=== PATIENT | female | born 1980 | race Caucasian/White ===

== ENCOUNTER → 2017-11-28 | Outpatient (CLI) | payer OTHER ==
[2017-11-28 11:07] LABS: ALT 35 U/L (9-52); AST 23 U/L (14-36); Albumin 4.6 g/dL (3.5-5.0); Alkaline Phosphatase 85 U/L (38-126); Anion Gap 12 mmol/L; Blood Urea Nitrogen 12 mg/dL (7-17); Calcium 9.5 mg/dL (8.4-10.2); Carbon Dioxide 26 mmol/L (22-30); Chloride 102 mmol/L (98-107); Cholesterol 204 mg/dL (<200); Glucose 91 mg/dL (74-99); HDL Cholesterol 39 mg/dL (40-60); LDL Cholesterol,Calculated 111 mg/dL (0-99); Potassium 4.3 mmol/L (3.5-5.1); Sodium 140 mmol/L (137-145); Total Protein 7.5 g/dL (6.3-8.2); Triglycerides 272 mg/dL (<150)
[2017-11-28 11:16] LABS: HCT 43.8 % (34.0-46.0); HGB 14.6 gm/dL (11.4-16.0); MCH 28.7 pg (25.0-35.0); MCHC 33.3 g/dL (31.0-37.0); MCV 86.3 fL (80.0-100.0); Mean Platelet Volume 6.8; Platelet Count 350 k/uL (150-450); RBC 5.08 m/uL (3.80-5.40); RDW 13.5 % (11.5-15.5); WBC 10.5 k/uL (3.8-10.6)
[2017-11-28 11:19] LABS: T4, Free (Free Thyroxine) 0.83 ng/dL (0.78-2.19)
== END | disposition home or self-care (01) ==
LOC: LABWHC1 10:26
PROVIDERS: ATTEND Internal Medicine
DX: Z00.00 Encounter for general adult medical examination without abnormal findings (principal); E78.2 Mixed hyperlipidemia; I11.9 Hypertensive heart disease without heart failure
CPT/HCPCS: 36415; 80053; 80061; 84439; 84443; 85027

== ENCOUNTER 2017-11-29 10:40 | Outpatient (CLI) | payer OTHER ==
--- NOTE | 2017-12-05 13:04 | WWHP ---
[facility] - HISTORY AND PHYSICAL DATE OF SERVICE: 12/05/2017 CHIEF COMPLAINT: The patient is here for her routine gynecologic exam. HPI: This is a 37-year-old, G3, P1-0-2-1 with an LMP of 11/28/2017. The patient is without gynecologic complaints and states her menses are regular every month. She states her boyfriend is sterile and is status post bilateral testes removal for testicular cancer and is declining anything for control because of this. PAST MEDICAL HISTORY: Chronic hypertension, anxiety, and chronic back problems. MEDICATIONS: 1. Dyazide generic 37.5/25 mg daily. 2. Xanax generic 0.25 mg b.i.d. p.r.n. 3. Clonidine 1 b.i.d. 4. Ultram generic 50 mg b.i.d. p.r.n. ALLERGIES: Allergies to IBUPROFEN, which caused hives. PAST SURGICAL HISTORY: in the past, laminectomy 2014, cleft palate surgery as a child. 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 SOCIAL HISTORY: She smokes 1 pack of cigarettes per day and has about 4 alcohol-containing drinks per week. She denies drug use. She is currently unemployed. She has been with her boyfriend since 2012 and now lives with him. FAMILY HISTORY: Unchanged from the 05/25/2016 H&P. REVIEW OF SYSTEMS: She has gained about 3 pounds over the last year. She denies respiratory, cardiac or GI problems. PHYSICAL EXAM: Blood pressure 151/96, height 5 feet 5 inches, weight 212 pounds, BMI 35. temperature 98.0, pulse 81. This is a well-developed, well-nourished, white female, who is alert and oriented x3, in no acute distress. HEENT is within normal limits. NECK: Supple without mass or thyromegaly. CHEST AND LUNGS: Clear to auscultation. HEART: Regular rate and rhythm. Breasts are without mass or discharge. Axillary exam is negative for adenopathy. BACK: Negative for CVA tenderness. ABDOMEN: Soft, nontender, without palpable masses. PELVIC EXAM: Normal external genitalia. Cervix and vagina appear normal. The uterus is mid position, nongravid size and nontender. There are no palpable adnexal masses or tenderness. Rectal exam is negative for mass or tenderness and is negative for occult blood. EXTREMITIES: Nontender. IMPRESSION: 1. A 37-year-old gynecologically healthy female with normal gynecologic exam. 2. Elevated blood pressure with history of chronic hypertension. 3. Family history of breast cancer in her paternal grandmother. PLAN: 1. Pap smear was deferred since she had a normal one less than 2 years ago. 2. Self breast examination was discussed. 3. She had a normal mammogram at age 36. We will plan on repeating this next year. 4. We have discussed her elevated blood pressure. I have recommended that she check her blood pressure at home on a regular basis and follow up with Dr. Goyal regarding blood pressure elevations. 5. Osteoporosis prevention was discussed. 6. She will return in 1 year. MMODL / IJN: [id number] /
== END 2017-12-05 | disposition home or self-care (01) ==
LOC: CANPRECLI → WWCWWP 12-05 11:34
PROVIDERS: ATTEND Obstetrics & Gynecology
DX: Z53.9 Procedure and treatment not carried out, unspecified reason (principal)

== ENCOUNTER → 2017-12-13 | Outpatient (CLI) | payer OTHER ==
--- NOTE | 2017-12-13 13:47 | MR ---
EXAMINATION TYPE: MR lumbar spine wo con DATE OF EXAM: 12/13/2017 COMPARISON: Prior MRI lumbar spine October 16, 2014. Prior lumbar spine x-ray June 02, 2016 HISTORY: Low back pain for 3+ years per patient causing pain into bilateral lower extremities, histo ry of prior back surgery October 2015 TECHNIQUE: Multiplanar, multisequence imaging of the lumbar spine is performed without IV contrast. FINDINGS: Sagittal images of the lumbar spine show vertebral body heights and alignment to remain sat isfactory. There is persistent disc desiccation with increased advanced disc space narrowing and vacu um disc phenomenon L5-S1 level. Posterior disc herniation remains present at this level though less p rominent. Adjacent posterior scar tissue is felt present now. There is no right-sided laminectomy def ect. The conus medullaris remains normal in position and signal ending mid L1 level. The bone marrow signal intensity shows increased diminished T1 and increased T2 signal consistent with Modic type I degenerative change at L5-S1 level. Axial images show the T12-L1, L1-L2, L2-L3, L3-L4, and L4-L5 levels all to remain within normal limit s. Axial images at L5-S1 level shows central disc protrusion axial image 3 that remains present last pro minent than prior study. Along posterior right aspect of this there is curvilinear low T1 and T2 hypo intense area effacing anterolateral thecal sac axial image 3 could reflect retained disc fragment or more likely scar tissue. Right-sided laminectomy defect is now seen at this level. Disc herniation ca uses mild effacement right L5 neural foramina anterior inferior aspect. Left-sided neural foramen is patent. IMPRESSION: Interval surgery L5-S1 level with new right-sided laminectomy defect. Persistent posterio r disc herniation is less prominent. New curvilinear area adjacent to disc herniation effaces right a nterolateral thecal sac on current study suspected focal scar tissue, remnant disc fragment cannot be excluded. Correlate with surgical history.
== END | disposition home or self-care (01) ==
LOC: RADMRIMAIN 12:41
PROVIDERS: ATTEND Internal Medicine
DX: M51.26 Other intervertebral disc displacement, lumbar region (principal); Z98.890 Other specified postprocedural states
CPT/HCPCS: 72148

== ENCOUNTER → 2018-02-03 | Outpatient (CLI) | payer OTHER ==
[2018-02-03 12:07] LABS: Cholesterol 224 mg/dL (<200); HDL Cholesterol 50 mg/dL (40-60); LDL Cholesterol,Calculated 127 mg/dL (0-99); Triglycerides 235 mg/dL (<150)
== END | disposition home or self-care (01) ==
LOC: LABWHC1 11:40
PROVIDERS: ATTEND Internal Medicine
DX: E78.2 Mixed hyperlipidemia (principal)
CPT/HCPCS: 36415; 80061

== ENCOUNTER → 2018-02-19 | Outpatient (CLI) | payer OTHER ==
--- NOTE | 2018-02-19 13:29 | XR ---
EXAMINATION TYPE: XR chest 2V DATE OF EXAM: 02/19/2018 COMPARISON: Prior chest x-ray 05/11/2015 HISTORY: Chest pain, hypertension TECHNIQUE: Frontal and lateral views of the chest are obtained. FINDINGS: There is no focal air space opacity, pleural effusion, or pneumothorax seen. The cardiac silhouette size is within normal limits. Mild spinal curvature may be positional. Prominent lung volu me could be indicative of underlying COPD. The osseous structures are intact. IMPRESSION: No acute cardiopulmonary process.
== END ==
LOC: RADXRMAIN 11:42
PROVIDERS: ATTEND Internal Medicine
DX: R07.9 Chest pain, unspecified (principal)
CPT/HCPCS: 71046

== ENCOUNTER → 2018-06-06 | Outpatient (CLI) | payer OTHER ==
[2018-06-06 13:03] LABS: Basophils % (A) 0 %; Eosinophils # (A) 0.2 k/uL (0-0.7); Eosinophils % (A) 2 %; HCT 41.9 % (34.0-46.0); HGB 13.7 gm/dL (11.4-16.0); Lymphocytes # (A) 2.8 k/uL (1.0-4.8); Lymphocytes % (A) 32 %; MCH 27.8 pg (25.0-35.0); MCHC 32.6 g/dL (31.0-37.0); MCV 85.4 fL (80.0-100.0); Mean Platelet Volume 6.6; Monocytes # (A) 0.4 k/uL (0-1.0); Monocytes % (A) 4 %; Neutrophils # (A) 5.1 k/uL (1.3-7.7); Neutrophils % (A) 60 %; Platelet Count 342 k/uL (150-450); RBC 4.91 m/uL (3.80-5.40); RDW 13.5 % (11.5-15.5); WBC 8.5 k/uL (3.8-10.6)
--- NOTE | 2018-06-06 13:04 | XR ---
EXAMINATION TYPE: XR chest 2V DATE OF EXAM: 06/06/2018 COMPARISON: 02/19/2018 TECHNIQUE: PA and lateral views submitted. HISTORY: Preop FINDINGS: The lungs are clear and there is no pneumothorax, pleural effusion, or focal pneumonia. IMPRESSION: 1. No acute process.
[2018-06-06 13:08] LABS: Partial Thromboplastin Time 23.8 sec (22.0-30.0); Prothrombin Time 9.7 sec (9.0-12.0)
[2018-06-06 13:15] LABS: Appearance,Urine Clear (Clear); Bilirubin,Urine Negative (Negative); Blood,Urine Small (Negative); Color,Urine Yellow; Glucose,Urine (UA) Negative (Negative); Hyaline Casts,Urine 4 /lpf (0-2); Ketones,Urine Negative (Negative); Leukocyte Esterase,Urine Negative (Negative); Mucus,Urine Rare /hpf; Nitrite,Urine Negative (Negative); PH, Urine 6.5 (5.0-8.0); Protein,Urine Negative (Negative); RBC,Urine 1 /hpf (0-5); Specific Gravity,Urine 1.014 (1.001-1.035); Squamous Epithelial Cell,Urine <1 /hpf (0-4); Urobilinogen,Urine <2.0 mg/dL (<2.0)
[2018-06-06 13:19] LABS: ALT 39 U/L (9-52); AST 25 U/L (14-36); Albumin 4.5 g/dL (3.5-5.0); Alkaline Phosphatase 75 U/L (38-126); Anion Gap 10 mmol/L; Blood Urea Nitrogen 13 mg/dL (7-17); Calcium 9.7 mg/dL (8.4-10.2); Carbon Dioxide 25 mmol/L (22-30); Chloride 103 mmol/L (98-107); Glucose 94 mg/dL (74-99); Potassium 4.4 mmol/L (3.5-5.1); Sodium 138 mmol/L (137-145); Total Bilirubin 0.4 mg/dL (0.2-1.3); Total Protein 7.3 g/dL (6.3-8.2)
== END | disposition home or self-care (01) ==
LOC: LAB 12:17
PROVIDERS: ATTEND Neurological Surgery
DX: Z01.818 Encounter for other preprocedural examination (principal); M48.061 Spinal stenosis, lumbar region without neurogenic claudication; I10 Essential (primary) hypertension; R06.02 Shortness of breath; Z01.812 Encounter for preprocedural laboratory examination
CPT/HCPCS: 36415; 71046; 80053; 81001; 85025; 85610; 85730; 93005

== ENCOUNTER → 2018-08-30 | Outpatient (CLI) | payer OTHER ==
--- NOTE | 2018-08-30 16:41 | XR ---
Lumbar spine HISTORY: Back pain, lumbar fusion 3 views of the lumbar spine correlated prior exam 05/25/2016 There is been posterior fusion at the lumbosacral junction with screws coursing across the facets, la rge screw coursing from the S1 vertebral body to the posterior aspect of the L5 vertebral body. Loss of disc height L5-S1 as noted on prior exam. There is multilevel spondylosis. Disc height also presen t L4-5. Vertebral body height and bone mineralization, alignment are maintained. IMPRESSION: Neurosurgical follow-up.
== END ==
LOC: RADXRMAIN 15:35
PROVIDERS: ATTEND Neurological Surgery
DX: M54.9 Dorsalgia, unspecified (principal); Z98.1 Arthrodesis status
CPT/HCPCS: 72100

== ENCOUNTER 2018-09-11 15:16 | Emergency (ER) | payer OTHER ==
--- NOTE | 2018-09-11 16:00 | ED ---
General Adult HPI - General Chief complaint: Chest Pain Stated complaint: Chest pain/ heart palpations Time Seen by Provider: 09/11/18 15:16 Source: patient, RN notes reviewed Mode of arrival: wheelchair Limitations: no limitations - History of Present Illness Initial comments: This is a 38-year-old female who presents emergency department with past medical history significant for anxiety. Patient comes in today stating that she started feeling her heart have palpitations and then last night there was a period of time for about 5 minutes that she had constant palpitations and she became somewhat short of breath and lightheaded. Patient states she doesn't know if the lightheadedness was from her anxiety or from the palpitations. Patient states she's also been nauseated for the last 2-1/2 days. Patient states on Monday she dry heaved multiple times but no actual emesis. Patient denies any abdominal pain patient denies any chest pain patient denies any headache patient denies numbness weakness. Patient denies any fever chills. Patient states currently she is asymptomatic. Patient states most of today she only had short lived palpitations but last night really scared her when she had the five-minute episode of constant palpitations. - Related Data Home Medications Medication Instructions Recorded Confirmed ALPRAZolam [Xanax] 0.25 mg PO BID PRN 09/11/18 09/11/18 Triamterene-Hctz 37.5-25Mg 1 cap PO DAILY 09/11/18 09/11/18 [Dyazide 37.5-25 Capsule] cloNIDine HCL [Catapres] 0.2 mg PO BID 09/11/18 09/11/18 traMADol HCL [Ultram] 50 mg PO BID PRN 09/11/18 09/11/18 Allergies Allergy/AdvReac Type Severity Reaction Status Date / Time ibuprofen [From Motrin] Allergy Rash/Hives Verified 09/11/18 15:37 Review of Systems ROS Statement: Those systems with pertinent positive or pertinent negative responses have been documented in the HPI. ROS Other: All systems not noted in ROS Statement are negative. Past Medical History Past Medical History: Hypertension History of Any Multi-Drug Resistant Organisms: None Reported Past Surgical History: Back Surgery, Section, Ear Surgery Additional Past Surgical History / Comment(s): spinal fusion, cleft plate repair Past Psychological History: Anxiety Smoking Status: Current every day smoker Past Alcohol Use History: None Reported Past Drug Use History: Marijuana General Exam - General Exam Comments Initial Comments: GENERAL: Patient is well-developed and well-nourished. Patient is nontoxic and well- hydrated and is in mild distress. ENT: Neck is soft and supple. No significant lymphadenopathy is noted. Oropharynx is clear. Moist mucous membranes. Neck has full range of motion without eliciting any pain. EYES: The sclera were anicteric and conjunctiva were pink and moist. Extraocular movements were intact and pupils were equal round and reactive to light. Eyelids were unremarkable. PULMONARY: Unlabored respirations. Good breath sounds bilaterally. No audible rales rhonchi or wheezing was noted. CARDIOVASCULAR: There is a regular rate and rhythm without any murmurs gallops or rubs. ABDOMEN: Soft and nontender with normal bowel sounds. No palpable organomegaly was noted. There is no palpable pulsatile mass. SKIN: Skin is clear with no lesions or rashes and otherwise unremarkable. NEUROLOGIC: Patient is alert and oriented x3. Cranial nerves II through XII are grossly intact. Motor and sensory are also intact. Normal speech, volume and content. Symmetrical smile. MUSCULOSKELETAL: Normal extremities with adequate strength and full range of motion. No lower extremity swelling or edema. No calf tenderness. LYMPHATICS: No significant lymphadenopathy is noted PSYCHIATRIC: Normal psychiatric evaluation. Normal interpersonal interactions appears functionally intact in deals appropriately with others. No signs of depression. No signs of anxiety. Limitations: no limitations Course Vital Signs 09/11/18 09/11/18 09/11/18 15:24 15:39 16:00 Temperature 98.0 F Pulse Rate 83 76 Respiratory 20 16 Rate Blood Pressure 177/90 152/101 O2 Sat by Pulse 98 96 95 Oximetry 09/11/18 16:30 Temperature Pulse Rate 79 Respiratory 16 Rate Blood Pressure 143/97 O2 Sat by Pulse 96 Oximetry Medical Decision Making - Medical Decision Making EKG shows normal sinus rhythm at 90 bpm WV interval 140 [place]ress is 86 Q-T intervals 362 QTC is 442. Patient's EKG shows no ST segment elevation or depression or T wave abnormalities are noted. No extrasystole is noted. Of the nurse's notes indicated chest pain the patient denied to me. Chest x-ray shows no acute abnormality. Patient only experienced a a couple times very quickly in the emergency department was not picked up on the monitor. - Lab Data Result diagrams: 09/11/18 16:05 09/11/18 16:05 Lab Results 09/11/18 09/11/18 09/11/18 Range/Units 16:05 16:05 16:05 WBC 11.3 H (3.8-10.6) k/uL RBC 5.28 (3.80-5.40) m/uL Hgb 15.0 (11.4-16.0) gm/dL Hct 43.6 (34.0-46.0) % MCV 82.4 (80.0-100.0) fL MCH 28.4 (25.0-35.0) pg MCHC 34.4 (31.0-37.0) g/dL RDW 13.8 (11.5-15.5) % Plt Count 399 (150-450) k/uL Neutrophils % 66 % Lymphocytes % 27 % Monocytes % 4 % Eosinophils % 1 % Basophils % 0 % Neutrophils # 7.5 (1.3-7.7) k/uL Lymphocytes # 3.1 (1.0-4.8) k/uL Monocytes # 0.5 (0-1.0) k/uL Eosinophils # 0.1 (0-0.7) k/uL Basophils # 0.0 (0-0.2) k/uL PT (9.0-12.0) sec INR (<1.2) APTT (22.0-30.0) sec Sodium 139 (137-145) mmol/L Potassium 3.9 (3.5-5.1) mmol/L Chloride 104 (98-107) mmol/L Carbon Dioxide 22 (22-30) mmol/L Anion Gap 13 mmol/L BUN 10 (7-17) mg/dL Creatinine 0.56 (0.52-1.04) mg/dL Est GFR (CKD-EPI)AfAm >90 (>60 ml/min/1.73 sqM) Est GFR (CKD-EPI)NonAf >90 (>60 ml/min/1.73 sqM) Glucose 97 (74-99) mg/dL Calcium 10.3 H (8.4-10.2) mg/dL Magnesium 2.2 (1.6-2.3) mg/dL Total Bilirubin 1.2 (0.2-1.3) mg/dL AST 29 (14-36) U/L ALT 41 (9-52) U/L Alkaline Phosphatase 92 (38-126) U/L Total Creatine Kinase 42 (30-135) U/L CK-MB (CK-2) <0.2 (0.0-2.4) ng/mL CK-MB (CK-2) Rel Index Troponin I <0.012 (0.000-0.034) ng/mL Total Protein 8.5 H (6.3-8.2) g/dL Albumin 5.0 (3.5-5.0) g/dL TSH 1.190 (0.465-4.680) mIU/L Free T4 1.12 (0.78-2.19) ng/dL Urine Opiates Screen (NotDetected) Ur Oxycodone Screen (NotDetected) Urine Methadone Screen (NotDetected) Ur Propoxyphene Screen (NotDetected) Ur Barbiturates Screen (NotDetected) U Tricyclic Antidepress (NotDetected) Ur Phencyclidine Scrn (NotDetected) Ur Amphetamines Screen (NotDetected) U Methamphetamines Scrn (NotDetected) U Benzodiazepines Scrn (NotDetected) Urine Cocaine Screen (NotDetected) U Marijuana (THC) Screen (NotDetected) 09/11/18 09/11/18 Range/Units 16:05 16:23 WBC (3.8-10.6) k/uL RBC (3.80-5.40) m/uL Hgb (11.4-16.0) gm/dL Hct (34.0-46.0) % MCV (80.0-100.0) fL MCH (25.0-35.0) pg MCHC (31.0-37.0) g/dL RDW (11.5-15.5) % Plt Count (150-450) k/uL Neutrophils % % Lymphocytes % % Monocytes % % Eosinophils % % Basophils % % Neutrophils # (1.3-7.7) k/uL Lymphocytes # (1.0-4.8) k/uL Monocytes # (0-1.0) k/uL Eosinophils # (0-0.7) k/uL Basophils # (0-0.2) k/uL PT 10.0 (9.0-12.0) sec INR 1.0 (<1.2) APTT 24.0 (22.0-30.0) sec Sodium (137-145) mmol/L Potassium (3.5-5.1) mmol/L Chloride (98-107) mmol/L Carbon Dioxide (22-30) mmol/L Anion Gap mmol/L BUN (7-17) mg/dL Creatinine (0.52-1.04) mg/dL Est GFR (CKD-EPI)AfAm (>60 ml/min/1.73 sqM) Est GFR (CKD-EPI)NonAf (>60 ml/min/1.73 sqM) Glucose (74-99) mg/dL Calcium (8.4-10.2) mg/dL Magnesium (1.6-2.3) mg/dL Total Bilirubin (0.2-1.3) mg/dL AST (14-36) U/L ALT (9-52) U/L Alkaline Phosphatase (38-126) U/L Total Creatine Kinase (30-135) U/L CK-MB (CK-2) (0.0-2.4) ng/mL CK-MB (CK-2) Rel Index Troponin I (0.000-0.034) ng/mL Total Protein (6.3-8.2) g/dL Albumin (3.5-5.0) g/dL TSH (0.465-4.680) mIU/L Free T4 (0.78-2.19) ng/dL Urine Opiates Screen Not Detected (NotDetected) Ur Oxycodone Screen Not Detected (NotDetected) Urine Methadone Screen Not Detected (NotDetected) Ur Propoxyphene Screen Not Detected (NotDetected) Ur Barbiturates Screen Not Detected (NotDetected) U Tricyclic Antidepress Not Detected (NotDetected) Ur Phencyclidine Scrn Not Detected (NotDetected) Ur Amphetamines Screen Not Detected (NotDetected) U Methamphetamines Scrn Not Detected (NotDetected) U Benzodiazepines Scrn Detected H (NotDetected) Urine Cocaine Screen Not Detected (NotDetected) U Marijuana (THC) Screen Not Detected (NotDetected) Disposition Clinical Impression: Palpitations Disposition: HOME SELF-CARE Instructions: Heart Palpitations (ED), Chest Pain (ED) Additional Instructions: Patient should follow-up with her primary medical care doctor for an event monitor. Is patient prescribed a controlled substance at d/c from ED?: No Referrals: Marvel Goyal MD [Primary Care Provider] - 1-2 days Time of Disposition: 17:29
[2018-09-11 16:31] LABS: Basophils % (A) 0 %; Eosinophils # (A) 0.1 k/uL (0-0.7); Eosinophils % (A) 1 %; HCT 43.6 % (34.0-46.0); Lymphocytes # (A) 3.1 k/uL (1.0-4.8); Lymphocytes % (A) 27 %; MCH 28.4 pg (25.0-35.0); MCHC 34.4 g/dL (31.0-37.0); MCV 82.4 fL (80.0-100.0); Mean Platelet Volume 6.6; Monocytes # (A) 0.5 k/uL (0-1.0); Monocytes % (A) 4 %; Neutrophils # (A) 7.5 k/uL (1.3-7.7); Neutrophils % (A) 66 %; Platelet Count 399 k/uL (150-450); RBC 5.28 m/uL (3.80-5.40); RDW 13.8 % (11.5-15.5); WBC 11.3 k/uL (3.8-10.6)
[2018-09-11 16:44] LABS: ALT 41 U/L (9-52); AST 29 U/L (14-36); Alkaline Phosphatase 92 U/L (38-126); Anion Gap 13 mmol/L; Blood Urea Nitrogen 10 mg/dL (7-17); Calcium 10.3 mg/dL (8.4-10.2); Carbon Dioxide 22 mmol/L (22-30); Chloride 104 mmol/L (98-107); Glucose 97 mg/dL (74-99); Magnesium 2.2 mg/dL (1.6-2.3); Potassium 3.9 mmol/L (3.5-5.1); Sodium 139 mmol/L (137-145); Total Bilirubin 1.2 mg/dL (0.2-1.3); Total Protein 8.5 g/dL (6.3-8.2)
[2018-09-11 16:50] LABS: Creatine Kinase 42 U/L (30-135)
--- NOTE | 2018-09-11 16:50 | XR ---
EXAMINATION: XR chest 2V DATE AND TIME: 09/11/2018 4:32 PM CLINICAL INDICATION: dysrhythmia TECHNIQUE: PA and lateral COMPARISON: Radiographs 06/06/2018 FINDINGS: The lungs are clear. The pleural spaces are negative. The cardiac silhouette is not enlarged. The remainder of the mediastinal silhouette is unremarkable. The skeletal structures and soft tissues are negative for acute findings. IMPRESSION: NO ACUTE PROCESS.
[2018-09-11 16:51] LABS: Amphetamine Screen,Urine Not Detected (NotDetected); Barbiturate Screen,Urine Not Detected (NotDetected); Benzodiazepines Screen,Urine Detected (NotDetected); Cocaine Screen,Urine Not Detected (NotDetected); Methadone Screen, Urine Not Detected (NotDetected); Opiate Screen,Urine Not Detected (NotDetected); Oxycodone Screen, Urine Not Detected (NotDetected); Phencyclidine Screen,Urine Not Detected (NotDetected); Tricyclic Antidepressant,Urine Not Detected (NotDetected); Urn Cannabinoid Scrn Not Detected (NotDetected)
[2018-09-11 16:55] VITALS: RESP 16
[2018-09-11 16:59] LABS: T4, Free (Free Thyroxine) 1.12 ng/dL (0.78-2.19)
[2018-09-11 17:05] LABS: Creatine Kinase MB <0.2 ng/mL (0.0-2.4); Troponin I <0.012 ng/mL (0.000-0.034)
[2018-09-11 17:37] VITALS: BP 137/93; PULSE 76; TEMP 98.7
== END 2018-09-11 17:40 | disposition home or self-care (01) ==
LOC: EC 15:16
DX: R00.2 Palpitations (principal); R42 Dizziness and giddiness; R11.0 Nausea; R06.02 Shortness of breath; I10 Essential (primary) hypertension; F17.200 Nicotine dependence, unspecified, uncomplicated; Z79.899 Other long term (current) drug therapy; Z88.6 Allergy status to analgesic agent
CPT/HCPCS: 36415; 71046; 80053; 80306; 82550; 82553; 83735; 84439; 84443; 84484; 85025; 85610; 85730; 93005; 99285

== ENCOUNTER → 2018-09-18 | Outpatient (CLI) | payer OTHER ==
--- NOTE | 2018-09-18 08:31 | US ---
EXAMINATION TYPE: US abdomen complete DATE OF EXAM: 09/18/2018 COMPARISON: 2011 CLINICAL HISTORY: R68.89 Other general symptoms and signs, R10.12.... large body habitus EXAM MEASUREMENTS: Liver Length: 16.0 cm Gallbladder Wall: 0.1 cm CBD: 0.3 cm Spleen: 8.1 cm Right Kidney: 9.6 x 3.9 x 3.9 cm Left Kidney: 9.9 x 5.0 x 5.0 cm Pancreas: Limited by overlying bowel gas Liver: wnl Gallbladder: wnl Evidence for sonographic Arauz's sign: No CBD: wnl Spleen: wnl Right Kidney: No hydronephrosis or nephrolithiasis Left Kidney: No hydronephrosis or nephrolithiasis Upper IVC: wnl Abd Aorta: wnl IMPRESSION: 1. No evidence of acute process as visualized.
== END | disposition home or self-care (01) ==
LOC: RADUSWWP 07:49
PROVIDERS: ATTEND Internal Medicine
DX: R11.0 Nausea (principal); R68.89 Other general symptoms and signs
CPT/HCPCS: 76700

== ENCOUNTER → 2018-12-25 | Outpatient (CLI) | payer OTHER ==
--- NOTE | 2018-12-25 08:34 | FL ---
EXAMINATION: Cervical and Thoracic Esophagram DATE OF EXAM: 12/25/2018 CLINICAL INDICATION: 38-year-old female dysphagia, intermittent sticking sensation in the throat. COMPARISON: None Total Fluoroscopy Time: 41 seconds Total images: 20. FINDINGS: The swallowing mechanism is normal and hypopharyngeal anatomy is preserved. No esophageal web or dive rticulum. The cervical and thoracic portions have a normal course and caliber and normal motility. The mucosa i s normal and no persistent filling defect is encountered. No hiatal hernia is present. No spontaneous gastroesophageal reflux was encountered when the patient was in prone/MARCELINO position. Dedicated testing was not performed due to patient's lumbar surgery. IMPRESSION: Unremarkable esophagram.
--- NOTE | 2018-12-25 08:47 | CT ---
EXAMINATION TYPE: CT soft tissue neck w con DATE OF EXAM: 12/25/2018 COMPARISON: None HISTORY: 38-year-old female neck mass, swelling/lump along the left side TECHNIQUE: Contiguous axial scanning of the soft tissues of the neck performed with IV Contrast, marie ent injected with 100 mL of Isovue 300. Coronal/sagittal reconstructions performed. CT DLP: 479.10 mGycm Automated exposure control for dose reduction was used. FINDINGS: Visualized orbits and globes, paranasal sinuses, intracranial structures, and mastoid air cells appea r clear. Rightward nasal septal deviation. Nasopharynx is clear. Mild lingual tonsillar hypertrophy. Oropharynx otherwise clear. Epiglottis and prevertebral soft tissues are within normal limits. The glottic and subglottic structures as well as the tracheal column and visualized upper lungs are c lear. Thyroid, submandibular, and parotid glands are satisfactory. Palpable marker has been placed along the left anterolateral upper neck. Directly underlying this is a superficial lymph node overlying the left external jugular vein. Lymph node measures only 5 mm in s hort axis. Somewhat deeper within station 2A at this same level is a palpable marker, an additional n onenlarged 1.3 x 0.7 cm lymph node is present. No enlarged lymph nodes or suspicious masses seen. No osseous destructive process. IMPRESSION: PALPABLE MARKER ALONG THE LEFT UPPER ANTEROLATERAL NECK. THERE IS A SMALL SUPERFICIAL 5 MM SHORT AXIS LYMPH NODE JUST DEEP TO THE PALPABLE MARKER. SLIGHTLY DEEPER, THERE IS AN ADDITIONAL NONENLARGED 7 M M SHORT AXIS LYMPH NODE STATION 2A. NO ABNORMAL LYMPHADENOPATHY, MASS, OR OTHER ABNORMALITY IS SEEN.
== END | disposition home or self-care (01) ==
LOC: RADCTMAIN 07:07
PROVIDERS: ATTEND Internal Medicine
DX: R22.1 Localized swelling, mass and lump, neck (principal); R13.10 Dysphagia, unspecified
CPT/HCPCS: 74220; 70491; Q9967

== ENCOUNTER → 2019-01-15 | Outpatient (CLI) | payer OTHER ==
[2019-01-15 14:19] VITALS: BP 136/91; PULSE 74; RESP 16; TEMP 98.1; BMI 35.2
--- NOTE | 2019-01-15 15:28 | P.HPOB ---
History of Present Illness H&P Date: 01/15/19 Chief Complaint: The patient is here for her routine gynecologic exam and ma mmogram. This is a 38-year-old with an LMP of 12/30/2018. Her partner is sterile and is status post bilateral testes removal for testicular cancer. She states she has had a long history of ovulation type pain on the right side since age 14. The pain is typically brief for approximate 8 hours and is not very bothersome. About 2 months ago she had acute pain which was fairly severe and almost went to the emergency room, but it did gradually improve. The pain lasted for about one week. About 5 days ago she started having a dull ache in that same area and rates that at 2 out of 10. Her LMP was unusual in that she did not have breast pain or cramping, which is unusual for her. She also noticed that sexual intercourse was uncomfortable and felt like there was burning in the area of the vaginal curran. Her menstrual periods have gotten slightly heavier and longer over the past 6 months. Review of Systems The patient's weight has been stable over the last year. She denies respiratory, cardiac, or G.I. problems. Past Medical History Past Medical History: Hypertension Additional Past Medical History / Comment(s): Chronic back problems status post spinal fusion in 2018. 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 History of Any Multi-Drug Resistant Organisms: None Reported Past Surgical History: Back Surgery, Section, Ear Surgery Additional Past Surgical History / Comment(s): spinal fusion, cleft plate repair. Past Psychological History: Anxiety Smoking Status: Current every day smoker (Half pack per day) Past Alcohol Use History: Occasional (0 to 3 per month) Past Drug Use History: Marijuana Additional History: She lives with her boyfriend and has been with him since 2013. She is currently unemployed. - Past Family History Mother Family Medical History: Diabetes Mellitus Additional Family Medical History / Comment(s): Maternal grandmother had ovarian cancer. Sister(s) Additional Family Medical History / Comment(s): Polycystic ovarian syndrome. Father Family Medical History: Myocardial Infarction (NH) Additional Family Medical History / Comment(s): Paternal grandmother had breast cancer at age 41. Paternal grandfather had colon cancer. Medications and Allergies Home Medications Medication Instructions Recorded Confirmed Type ALPRAZolam [Xanax] 0.25 mg PO BID PRN 09/11/18 01/15/19 History Triamterene-Hctz 37.5-25Mg 1 cap PO DAILY 09/11/18 01/15/19 History [Dyazide 37.5-25 Capsule] cloNIDine HCL [Catapres] 0.2 mg PO BID 09/11/18 01/15/19 History traMADol HCL [Ultram] 50 mg PO BID PRN 09/11/18 01/15/19 History Allergies Allergy/AdvReac Type Severity Reaction Status Date / Time ibuprofen [From Motrin] Allergy Rash/Hives Verified 09/11/18 15:37 Exam Vital Signs Temp Pulse Resp BP Pulse Ox 01/15/19 14:15 98.1 F 74 16 136/91 97 Intake and Output 01/15/19 01/15/19 01/15/19 06:59 14:59 22:59 Other: Weight 96.162 kg Height 5'5", weight 212 pounds, BMI 35.3. This is a well-developed well-nourished heavyset white female who is alert and oriented times 3 in no acute distress. HEENT: Within normal limits. NECK: Supple without mass or thyromegaly. CHEST AND LUNGS: Clear to auscultation. HEART: Regular rate and rhythm. BREASTS: Are without mass or discharge. AXILLARY EXAM: Negative for adenopathy. BACK: Negative for CVA tenderness. ABDOMEN: Soft, mildly obese, without palpable masses. There is minimal right lower quadrant tenderness without rebound tenderness. There is no other abdominal tenderness. PELVIC EXAM: Normal external genitalia. Cervix and vagina appear normal. There is no unusual discharge. There is no evidence of prolapse. The uterus is midposition, nongravid size and nontender. There are no palpable adnexal masses. There is minimal right pelvic tenderness. There is no cervical motion tenderness. There is no uterine or left adnexal tenderness. RECTAL EXAM: rectovaginal exam is negative for mass or tenderness and is negative for occult blood. EXTREMITIES: Nontender. IMPRESSION: 1. 38-year-old female with acute pelvic and right lower quadrant pain 2 months ago which resolved, but has recurred as a dull ache on the right side. There is minimal right lower quadrant and right pelvic tenderness, but otherwise normal pelvic exam. This most likely represents some type of ruptured ovarian cyst or hemorrhagic ovarian cyst possibly related to and an ovulatory cycle since she did not have her typical menstrual symptoms. 2. Male partner's status post bilateral removal of testes and is sterile. The patient. PLAN: 1. Pap smear was performed. 2. Self Breast awareness was discussed with the patient. 3. Screening mammogram will be done today because of her family history of breast cancer in her grandmother at age 43. 4. Pelvic ultrasound will be scheduled. 5. She can use Tylenol PRN as directed. 6. She will keep some type of menstrual and symptom calendar and make an appointment if her symptoms are worsening. 7.She was advised to return in one year for her annual well woman exam.
--- NOTE | 2019-01-16 11:57 | MM ---
Reason for exam: screening (asymptomatic). Last mammogram was performed 2 years and 8 months ago. History: Family history of premenopausal breast cancer in grandmother at age 41. Took hormonal contraceptives for 3 years beginning at age 17. Physical Findings: A clinical breast exam by your physician is recommended on an annual basis and results should be correlated with mammographic findings. MG Screening Mammo w CAD Bilateral CC and MLO view(s) were taken. Prior study comparison: May 26, 2016, bilateral MG screening mammo w CAD. April 01, 2011, bilateral digital screening mammo w/CAD. The breast tissue is extremely dense which could obscure a lesion on mammography. No suspicious abnormality. No significant changes when compared with prior studies. ASSESSMENT: Negative, BI-RAD 1 RECOMMENDATION: Routine screening mammogram of both breasts in 1 year.
== END ==
LOC: WWCWWP 14:03
PROVIDERS: ATTEND Obstetrics & Gynecology
DX: Z12.31 Encounter for screening mammogram for malignant neoplasm of breast (principal); Z80.3 Family history of malignant neoplasm of breast
CPT/HCPCS: 77067

== ENCOUNTER → 2019-01-17 | Outpatient (CLI) | payer OTHER ==
--- NOTE | 2019-01-17 07:42 | US ---
EXAMINATION TYPE: US pelvis complete transvag DATE OF EXAM: 01/17/2019 COMPARISON: NONE CLINICAL HISTORY: R10.31 /Right Lower Quad pain. TECHNIQUE: Transvaginal (TV) and Transabdominal (TA) . Transabdominal sonographic images of the pel vis were acquired. Transvaginal sonographic images were medically necessary to better assess the fol lowing anatomy: Date of LMP: 12/30/2018 EXAM MEASUREMENTS: Uterus: 11.4 x 6.4 x 4.7 cm Endometrial Stripe: 1.3 cm Right Ovary: 5.3 x 4.7 x 3.4 cm Left Ovary: 3.9 x 2.8 x 2.5 cm 1. Uterus: Anteverted bulky, enlarged in size. Multiple cervical cysts noted (largest = 1.1 cm), 2 hypoechoic areas,?fibroids = 1.2 x 1.3 x 1.1 cm, and 1.2 x 1.5 x 1.1 cm 2. Endometrium: wnl 3. Right Ovary: with septated cyst = 3.7 x 3.6 x 2.4 cm 4. Left Ovary: with follicles 5. Bilateral Adnexa: wnl 6. Posterior cul-de-sac: wnl Heterogeneous anteverted uterus is seen. There are multiple nabothian cysts in the cervix seen best o n transvaginal investigation. Endometrium measures 13 mm in thickness which is within normal limits f or secretory phase of menstrual cycle as last known menstrual period is December 30. Technologist nagi brooks some vague hypoechoic area suspicious for small fibroids near central endometrium to right of midl ine. Both ovaries are seen, right ovary is larger than left ovary with 3.6 cm round lesion that contains s ome internal septation or echoes. No suspicious nodularity is present. IMPRESSION: Enlarged right ovary with 3.6 cm nonsimple cyst, possible hemorrhagic cyst. Advise ultras ound follow-up in 6 weeks' time to reassess. Small fibroids are suspected. Pelvic fibroids can be bet ter evaluated and characterized with pelvic MRI if desired.
== END ==
LOC: RADUSWWP 06:53
PROVIDERS: ATTEND Obstetrics & Gynecology
DX: N83.201 Unspecified ovarian cyst, right side (principal)
CPT/HCPCS: 76830; 76856

== ENCOUNTER → 2019-03-07 | Outpatient (CLI) | payer OTHER ==
--- NOTE | 2019-03-07 14:30 | US ---
EXAMINATION TYPE: US pelvis complete transvag DATE OF EXAM: 03/07/2019 COMPARISON: 01/17/2019 CLINICAL HISTORY: R10.2 Pelvic and perineal pain,N83.0 R Ovarian cyst. Ovarian cyst, pelvic pain TECHNIQUE: Transvaginal (TV) and Transabdominal (TA) . Transabdominal sonographic images of the pel vis were acquired. Transvaginal sonographic images were medically necessary to better assess the fol lowing anatomy: uterus and ovaries Date of LMP: 02/24/19 EXAM MEASUREMENTS: Uterus: 10.8 x 4.5 x 5.5 cm Endometrial Stripe: 0.6 cm Right Ovary: 5.0 x 2.2 x 2.0 cm Left Ovary: 3.3 x 1.6 x 1.7 cm 1. Uterus: Anteverted Multiple Nabothian cysts in the cervix. 2. Endometrium: appears wnl 3. Right Ovary: cystic area = 2.4 x 1.8 x 2.2cm . This has homogeneous low-level internal echoes and previously measured up to 3.6 cm. 4. Left Ovary: follicles noted 5. Bilateral Adnexa: wnl 6. Posterior cul-de-sac: wnl IMPRESSION: Smaller size of the mildly complex right ovarian cyst appearing to represent an involutin g hemorrhagic cyst now measuring up to 2.4 cm and previously measuring up to 3.6 cm.
== END | disposition home or self-care (01) ==
LOC: RADUSWWP 13:02
PROVIDERS: ATTEND Obstetrics & Gynecology
DX: N83.201 Unspecified ovarian cyst, right side (principal)
CPT/HCPCS: 76830; 76856

== ENCOUNTER 2025-05-22 17:00 | Emergency (ER) | payer BC ==
[2025-05-22 17:11] VITALS: RESP 18; TEMP 98.5
--- NOTE | 2025-05-22 18:21 | ED ---
General Adult HPI - General Chief complaint: Back Pain/Injury Stated complaint: Back Pain Time Seen by Provider: 05/22/25 17:02 Source: patient, EMS Mode of arrival: EMS Limitations: no limitations - History of Present Illness Initial comments: Patient is a 44-year-old female presenting today for atraumatic low back pain. Patient states woke up with pain last . She went to a hospital in [place] where she currently works and was admitted to the hospital over the weekend. She states she had multiple CT scans done, told she has endometriosis, had labs, was given antibiotics but ultimately when she was seen by the Hospitalist on Monday she was told symptoms are likely secondary to muscular strain of the back. Patient does have prior surgeries of laminectomy but no recent surgeries. She denies recent falls. States she was discharged home with [place] and methocarbamol without much relief of pain. She states she drove 5 hours from [place] yesterday and last night could not sleep secondary to pain. Had to sit in a reclined position which did alleviate some of her pain. Denies red flag symptoms, denies history IV drug use, cancer, denies , denies saddle anesthesia, urinary incontinence, difficulty urinating or incontinence of stool. Denies abdominal pain, chest pain, shortness of breath. Denies focal numbness or weakness, denies lower extremity weakness or numbness. Is allergic to NSAIDs. 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 - Related Data Home Medications Medication Instructions Recorded Confirmed ALPRAZolam [Xanax] 0.25 mg PO BID PRN 09/11/18 01/15/19 Triamterene-Hctz 37.5-25Mg 1 cap PO DAILY 09/11/18 01/15/19 [Dyazide 37.5-25 Capsule] cloNIDine HCL [Catapres] 0.2 mg PO BID 09/11/18 01/15/19 traMADol HCL [Ultram] 50 mg PO BID PRN 09/11/18 01/15/19 Previous Rx's Medication Instructions Recorded tiZANidine HCL 2 mg PO Q8HR PRN 5 Days #15 capsule 05/22/25 Allergies Allergy/AdvReac Type Severity Reaction Status Date / Time ibuprofen [From Motrin] Allergy Rash/Hives Verified 09/11/18 15:37 Review of Systems ROS Statement: Those systems with pertinent positive or pertinent negative responses have been documented in the HPI. ROS Other: All systems not noted in ROS Statement are negative. Past Medical History Past Medical History: Hypertension Additional Past Medical History / Comment(s): Chronic back problems status post spinal fusion in 2018. 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 History of Any Multi-Drug Resistant Organisms: None Reported Past Surgical History: Back Surgery, Section, Ear Surgery Additional Past Surgical History / Comment(s): spinal fusion, cleft plate repair. Past Psychological History: Anxiety Past Alcohol Use History: Occasional Past Drug Use History: Marijuana - Past Family History Mother Family Medical History: Diabetes Mellitus Additional Family Medical History / Comment(s): Maternal grandmother had ovarian cancer. Sister(s) Additional Family Medical History / Comment(s): Polycystic ovarian syndrome. Father Family Medical History: Myocardial Infarction ([place]) Additional Family Medical History / Comment(s): Paternal grandmother had breast cancer at age 41. Paternal grandfather had colon cancer. General Exam - General Exam Comments Initial Comments: PE: CONSTITUTIONAL: No apparent distress, well appearing SKIN: Warm, dry, no jaundice, hives or petechiae EYES: Pupils are equally round, extraocular movements intact without nystagmus, clear conjunctiva, non-icteric sclera HENT: Normocephalic, atraumatic, moist mucus membranes, oropharynx clear without exudates NECK: , Full range of motion, normal appearance PULMONARY: Clear to auscultation without wheezes, rhonchi, or rales, normal excursion, no accessory muscle use and no stridor CARDIOVASCULAR: Regular rate, rhythm, normal S1 and S2. No appreciated murmurs, rubs or gallops. Strong radial pulses with intact distal perfusion. No lower extremity edema GASTROINTESTINAL: Soft, active bowel sounds throughout, non-tender, non- distended, no palpable masses, no rebound or guarding. No hepatosplenomegaly, - CVA TTP MUSCULOSKELETAL: Extremities have no gross deformity, no edema, redness, or swelling. No midline spinal TTP, +Straight leg raise when RLE is lifted, sensation intact bilaterally NEUROLOGIC:_a/o x 3, GCS 15, normal mentation and speech. Moves all extremities x 4 without motor or sensory deficit PSYCHIATRIC:_normal mood and affect, thought process is clear and linear Limitations: no limitations Course Vital Signs 05/22/25 05/22/25 17:10 18:49 Temperature 98.5 F Pulse Rate 94 84 Respiratory 18 18 Rate Blood Pressure 144/80 129/79 O2 Sat by Pulse 99 98 Oximetry Medical Decision Making - Medical Decision Making Was pt. sent in by a medical professional or institution (, PA, LINOLEUM LAYER APPRENTICE, urgent care, hospital, or [facility]...) When possible be specific @ -No Did you speak to anyone other than the patient for history (EMS, parent, family, police, friend...)? What history was obtained from this source @ -No Did you review nursing and triage notes (agree or disagree)? Why? @ -I reviewed nursing and triage notes Were old charts reviewed (outside hosp., previous admission, EMS record, old EKG, old radiological studies, urgent care reports/EKG's, [facility] records)? Report findings @ -Medical records reviewed reviewed pelvic ultrasound from 03/07/2019, followed right sided complex ovarian cyst representing an "involuting hemorrhagic cyst" Differential Diagnosis (chest pain, altered mental status, abdominal pain women, abdominal pain men, vaginal bleeding, weakness, fever, dyspnea, syncope, headache, dizziness, GI bleed, back pain, seizure, CVA, palpatations, mental health, musculoskeletal)? Differential Back Pain: Strain, zoster, cauda equina syndrome, epidural abscess, vertebral osteomyelitis, discitis, fracture, subluxation, disc herniation, DJD, spinal stenosis, dissection, AAA, pancreatitis, peptic ulcer disease, pyelonephritis, kidney stone, this is not meant to be an all-inclusive list. EKG interpreted by me (3pts min.). @ -As above X-rays interpreted by me (1pt min.). @ -None done CT interpreted by me (1pt min.). @ -None done U/S interpreted by me (1pt. min.). @ -None done What testing was considered but not performed or refused? (CT, X-rays, U/S, labs)? Why? @ -X-ray, CT abdomen pelvis were considered however patient already had CT and abdomen pelvis performed last weekend, findings were reportedly significant for endometriosis, patient had no recent injuries, no red flag symptoms no fevers no CVA tenderness, no urinary symptoms, no midline spinal TTP What meds were considered but not given or refused? Why? @ -None Did you discuss the management of the patient with other professionals (professionals i.e. , PA, LINOLEUM LAYER APPRENTICE, lab, RT, psych nurse, social service agency director, bone crusher, teacher, articulation officer, assistant case manager)? Give summary @ -No Was smoking cessation discussed for >3mins.? @ -No Was critical care preformed (if so, how long)? @ -No Were there social determinants of health that impacted care today? How? (Homelessness, low income, unemployed, alcoholism, drug addiction, tr ansportation, low edu. Level, literacy, decrease access to med. care, half-way, rehab)? @ -No Was there de-escalation of care discussed even if they declined (Discuss DNR or withdrawal of care, Hospice)? @ -No What co-morbidities impacted this encounter? (DM, HTN, Smoking, COPD, CAD, Cancer, CVA, ARF, Chemo, Hep., AIDS, mental health diagnosis, sleep apnea, morbid obesity)? @ -None Was patient admitted / discharged? Hospital course, mention meds given and route, prescriptions, significant lab abnormalities, going to OR and other pertinent info. @ -Discharged- 44 y/o female presenting for atraumatic left sided back pain. Denies red flag symptoms. Exam significant for no midline spinal TTP, + straight left raise on RLE. Given pt has already had extensive workup and symptoms are positional in nature, discussed with pt plan for pain control and d/c. Patient will be switched over to zanaflex, was directed to stop taking methocarbamol. Patient agreeable with plan of care. I did offer her the option of receiving pain medications, being observed in the ED to ensure improvement of symptoms and then discharge versus discharge home after receiving medications. Patient was comfortable plan for discharge immediately after receiving medications. I discussed with patient send symptoms to monitor for warranting return to the ER such as constipation, urinary retention, loss of bowel or bladder function, numbness or tingling into the rectum, groin, or develop fevers and chills. In my medical judgment there is currently no evidence of an immediate life- threatening or surgical condition. Discharge is therefore indicated at this time. Discharge treatment instructions, follow up instructions, and appropriate emergency department return precautions were discussed with the patient and/or medical decision maker. Patient and/or medical decision maker expressed understanding of and agreed with the treatment plan, follow up instructions, and emergency department return precaution. All patient's and/or medical decision maker's questions were answered. The patient was advised that a small risk still exists that a serious condition could develop and was therefore instructed to return to the ED for any changes in symptoms, persistent symptoms, inability to obtain proper follow-up or for any further concerns. Patient received verbal and written instructions for this condition. Undiagnosed new problem with uncertain prognosis? @ -No Drug Therapy requiring intensive monitoring for toxicity (Heparin, Nitro, Insulin, Cardizem)? @ -No Were any procedures done? @ -No Diagnosis/symptom? @Left-sided low back pain Acute, or Chronic, or Acute on Chronic? @ -Acute Uncomplicated (without systemic symptoms) or Complicated (systemic symptoms)? @Uncomplicated Side effects of treatment? @ -No Exacerbation, Progression, or Severe Exacerbation? @ -No Poses a threat to life or bodily function? How? (Chest pain, [place], [place], pneumonia, PE, COPD, DKA, ARF, appy, cholecystitis, CVA, Diverticulitis, Homicidal, Suicidal, threat to staff... and all critical care pts) @ -No Disposition Clinical Impression: Left low back pain Disposition: HOME SELF-CARE Condition: Good Instructions (If sedation given, give patient instructions): Acute Low Back Pain (ED) Additional Instructions: Every disease is a spectrum and a small chance still exists that a serious condition could develop, for this reason, please monitor yourself closely for new, changing or worsening symptoms, symptoms that do not begin to improve over the next 48 hours with interventions discussed while in the ED, any of the symptoms listed below, fever, inability to tolerate/keep down fluids or your medications, inability to follow up with outpatient providers as instructed and should you experience these symptoms or should you have any further concerns for your wellbeing please return to the ED or call 911 immediately. Return to the emergency department if you develop constipation, urinary retention, loss of bowel or bladder function, numbness or tingling into the rectum, groin, or develop fevers and chills PLEASE call your primary care physician as soon as possible to arrange / discuss plan for followup appointment. Appointment in the next 1-3 days is strongly encouraged if possible. PLEASE let us know here before you leave if there is anything further we can do to be of any assistance. Take care and feel Better! Prescriptions: tiZANidine HCL 2 mg PO Q8HR PRN 5 Days #15 capsule PRN Reason: Muscle Spasm Is patient prescribed a controlled substance at d/c from ED?: No Referrals: Jay Jay Goyal MD [Primary Care Provider] - 1-2 days
[2025-05-22] MEDS: DEXAMETHASONE SOD PHOSPHATE 10 MG/ML 1 ML VIAL IVP STA (18:27)
[2025-05-22] MEDS: ONDANSETRON 4 MG/2 ML VIAL IVP STA (18:29)
[2025-05-22] MEDS: MORPHINE SULFATE 4 MG/ML SYRINGE IVP STA (18:32)
[2025-05-22] MEDS: LIDOCAINE 4% PATCH TOPICAL ONE (18:35)
[2025-05-22 18:50] VITALS: BP 129/79; PULSE 84
== END 2025-05-22 18:50 | disposition home or self-care (01) ==
LOC: EC 17:00
DX: M54.50 Low back pain, unspecified (principal); Z88.6 Allergy status to analgesic agent
CPT/HCPCS: 99283; 96374; 96375; J2270; J1100; J2405; 99284